=== PATIENT | female | born 1940 | race Asian ===

== ENCOUNTER 2018-09-23 14:14 | Emergency (ER) | payer MEDICARE, MEDICAID ==
[~2018-09-23] VITALS: Ht 152.4 cm; Wt 70.8 kg
[2018-09-23 14:30] VITALS: BP 171/62
--- NOTE | 2018-09-23 14:40 | NUR ---
PT REC'D ON MECH VENT ON CPAP ON NOTED SETTINGS GIVEN FROM TRANSPORT RT. PT SHOWS NO SIGNS OF RESP DISTRESS AND SOB. PT AWAKE AND ALERT. SX'D FOR MOD AMT OF PALE YELLOW SECRETIONS. TRACH PATENT AND SECURED. ALARMS SET AND AUDIBLE. VENT PLUGGED INTO RED OUTLET. AMBU BAG BEDSIDE. WILL CONTINUE TO MONITOR Addendum: 09/23/18 at 1524 by CASA VUONG RT Amended: Links added.
--- NOTE | 2018-09-23 14:51 | NUR ---
DR CURTIS AT BEDSIDE FOR G TUBE REINSERTION. 22F. AWAITING XRAY FOR PLACEMENT CONFIRMATION.
[2018-09-23] MEDS ORDERED: DIATR MEGLU/DIATRIZOATE SODIUM 120 ML BOTTLE (GASTROGRAPHIN) PO ONE (15:00)
--- NOTE | 2018-09-23 15:26 | NUR ---
[facility]. ETA 30 MIN. TRIP NUMBER IS [id number]
--- NOTE | 2018-09-23 16:06 | NUR ---
PT STABLE FOR TRANSFER EMS HERE Patient discharged to home in stable condition. Written and verbal after care instructions given. Patient verbalizes understanding of instruction.
[2018-09-23 16:09] VITALS: BP 169/72
== END 2018-09-23 16:10 ==
LOC: ER 14:21
DX: K94.23 Gastrostomy malfunction (principal); R13.10 Dysphagia, unspecified; R56.9 Unspecified convulsions; F03.90 Unspecified dementia, unspecified severity, without behavioral disturbance, psychotic disturbance, mood disturbance, and anxiety; G93.40 Encephalopathy, unspecified; I50.9 Heart failure, unspecified; K21.9 Gastro-esophageal reflux disease without esophagitis; E11.9 Type 2 diabetes mellitus without complications; F32.9 Major depressive disorder, single episode, unspecified; F41.9 Anxiety disorder, unspecified; Z99.11 Dependence on respirator [ventilator] status; Z87.09 Personal history of other diseases of the respiratory system; Z98.890 Other specified postprocedural states
CPT/HCPCS: 43762; 74018; 99284; A4606; Q9963

== ENCOUNTER 2018-12-07 14:22 | Inpatient (IN) | payer MEDICARE, MEDICAID ==
[~2018-12-07] VITALS: Ht 142.2 cm; Wt 55.8 kg
[2018-12-07] VITALS (7 sets, daily range): BP systolic 100–119; BP diastolic 43–88
--- NOTE | 2018-12-07 14:51 | NUR ---
PT BIBRA FROM SNF FOR LOW H&H; PT AOX0, NONVERBAL, OBTUNDED, PT TO BED 5, PT ON MONITOR, VSS, NAD NOTED. PENDING MD LOMAS
[2018-12-07 15:40] LABS: BASOPHILS % (AUTO) 0.2 % (0.0-2.0); EOSINOPHILS % (AUTO) 2.5 % (0.0-6.0); LYMPHOCYTES # (AUTO) 0.8 /CMM (0.8-4.8); LYMPHOCYTES % (AUTO) 7.9 % (20.0-44.0); MEAN CORPUSCULAR HGB CONC 33 g/dl (31.0-36.0); MEAN CORPUSCULAR VOLUME 89 fL (82-100); MONOCYTES # (AUTO) 0.5 /CMM (0.1-1.30); MONOCYTES % (AUTO) 5.1 % (2.0-12.0); NEUTROPHILS % (AUTO) 84.3 % (43.0-81.0); PLATELET COUNT (AUTO) 213 /CMM (150-450); RED BLOOD CELL COUNT(AUTO) 2.23 MIL/uL (4.0-5.2); WHITE BLOOD COUNT (AUTO) 9.5 K/uL (4.3-11.0)
[2018-12-07 15:42] LABS: HEMATOCRIT 20 % (33-45); HEMOGLOBIN 6.6 g/dL (11.5-14.8)
[2018-12-07] MEDS ORDERED: ACET-73 PO (15:48)
[2018-12-07] MEDS ORDERED: CRAN3875 GT (15:48)
[2018-12-07] MEDS ORDERED: NA P133E RC (15:48)
[2018-12-07] MEDS ORDERED: ASCO500T9 GT (15:48)
[2018-12-07] MEDS ORDERED: LOSA50TA39 GT (15:48)
[2018-12-07] MEDS ORDERED: INSU500V SQ (15:48)
[2018-12-07] MEDS ORDERED: ACET650T10 GT (15:48)
[2018-12-07] MEDS ORDERED: MULT-447 GT (15:48)
[2018-12-07] MEDS ORDERED: SIME80TA15 GT (15:48)
[2018-12-07] MEDS ORDERED: FERR325T23 GT (15:48)
[2018-12-07] MEDS ORDERED: INSU100V10 SQ (15:48)
[2018-12-07] MEDS ORDERED: HYDR-4075 GT (15:48)
[2018-12-07] MEDS ORDERED: BISA10SU8 RC (15:48)
[2018-12-07] MEDS ORDERED: ACET-73 GT (15:48)
[2018-12-07] MEDS ORDERED: CLON0.1T GT (15:48)
[2018-12-07] MEDS ORDERED: FAMO20TA8 GT (15:48)
[2018-12-07] MEDS ORDERED: SACC250C GT (15:48)
[2018-12-07] MEDS ORDERED: FAMO20TA8 PO (15:48)
[2018-12-07] MEDS ORDERED: DOCU-141 GT (15:48)
[2018-12-07] MEDS ORDERED: LEVE500T20 GT (15:48)
[2018-12-07] MEDS ORDERED: NUT.237L30 GT (15:48)
[2018-12-07] MEDS ORDERED: ALBU2.5V13 IH ×2 (15:48)
[2018-12-07] MEDS ORDERED: MAGN400O6 GT (15:48)
[2018-12-07 15:49] LABS: CALCIUM, SERUM 9.4 mg/dL (8.5-10.1); CARBON DIOXIDE 36 mmol/L (21-32); CHLORIDE 100 mmol/L (98-107); CREATININE 0.6 mg/dL (0.6-1.3); GLUCOSE 111 mg/dL (74-106); POTASSIUM 4.3 mmol/L (3.5-5.1); SODIUM SERUM 140 mmol/L (136-145); UREA NITROGEN, BLOOD 18 mg/dL (7-18)
[2018-12-07 15:55] LABS: ALANINE AMINOTRANSFERASE 24 U/L (12-78); ALBUMIN 2.1 g/dL (3.4-5.0); ALKALINE PHOSPHATASE 217 U/L (46-116); ASPARTATE AMINOTRANSFERASE 29 U/L (15-37); BILIRUBIN,DIRECT 0.1 mg/dL (0.0-0.2); BILIRUBIN,TOTAL 0.3 mg/dL (0.2-1.0); TOTAL PROTEIN, SERUM 7.5 g/dL (6.4-8.2)
[2018-12-07] MEDS ORDERED: IPRA0.2S9 IH ×2 (16:11)
[2018-12-07] MEDS ORDERED: FERR300L GT (16:11)
[2018-12-07] MEDS ORDERED: ACET650S26 GT (16:12)
--- NOTE | 2018-12-07 16:40 | NUR ---
RT NOTE: LATE ENTRY- PATIENT RECEIVED IN ER WITH PORTEX#7 TRACH AND PLACED ON ESPRIT VENT. SETTINGS PER MD ORDER. ALARMS SET AND AUDIBLE. SUCTIONED AND LAVAGED MODERATE AMOUNT OF THICK ENRIQUEZ SECRETIONS. VENT PLUGGED INTO RED OUTLET. AMBU BAG AT [facility].
--- NOTE | 2018-12-07 17:05 | NUR ---
KEYA BED 113-1
--- NOTE | 2018-12-07 18:00 | NUR ---
HOSE BUILDER ADMITTING NOTE RECEIVED REPORT FROM HERMINIO YOU, ER @4050. RECEIVED PT. @APPROX 1800. NO ACUTE DISTRESS OR SOB NOTED. PT. IS NONVERBAL, TRACH DEPENDANT. OPENS EYES TO NAME AND ABLE TO FOLLOW COMMANDS. TELE ATTACHED, SINUS TACHY 91. G-TUBE SITE CLEAN, DRY AND INTACT. SKIN ASSESSMENT DONE, PICTURES TAKEN. IV SITE R WRIST 20G SALINE LOCKED, CLEAN, DRY, INTACT. MRSA SWAB DONE. TRANSFUSION PENDING, BED LOCKED, LOW, SIDE RAILS UPX2, CALL LIGHT WITHIN REACH. ENDORSED TO BATTERY HAND
--- NOTE | 2018-12-07 18:20 | NUR ---
report given to gordon lawrence for nahomy; pt will be transported via acls protocol
[2018-12-07] MEDS ORDERED: ALBUTEROL FS 2.5 MG/0.5 ML VIAL.NEB IH PRN (19:30)
[2018-12-07] MEDS ORDERED: IPRATROPIUM NEB FS 0.5 MG/2.5 ML AMPUL.NEB IH PRN (19:30)
[2018-12-07] MEDS ORDERED: CLONIDINE HCL 0.1 MG TABLET GT PRN (19:30)
--- NOTE | 2018-12-07 20:00 | NUR ---
ASSISTANT ART DIRECTOR NOTES RECEIVED PT ON BED. ON [facility] VENT SETTING SATURATING WELL. IV ACCESS ON R WRIST G20 SALINE LOCK. ON TELE MONITOR SR 80. PT A/OX1. HEAD OF BED ELEVATED. SIDE RAILS UP. CALL LIGHT WITHIN REACH. BED ALARM ON. WILL CONTINUE TO MONITOR PT CLOSELY.
--- NOTE | 2018-12-07 20:23 | NUR ---
GRAIN PICKER NOTES CALLED [facility] FOR ADMITTING ORDERS, PER CHRISTO RESUME PREVIOUS GT FEEDING IN SNF, AND ADMIT TO TELE.
[2018-12-07] MEDS ORDERED: ONDANSETRON HCL/PF 4 MG/2 ML VIAL IVP PRN (21:00)
[2018-12-07] MEDS ORDERED: Z GUARD REMEDY 2 OZ OINT TP PRN (21:00)
[2018-12-07] MEDS: ACETAMINOPHEN 325 MG TABLET PO PRN (21:07)
--- NOTE | 2018-12-07 21:07 | NUR ---
ORCHID WORKER NOTES PT TEMPERATURE OF 100. GIVEN TYLENOL AND COOLING MEASURES.
[2018-12-07] MEDS: GLUCERNA 1.2 1,000 ML BOTTLE GT PRN (21:49)
--- NOTE | 2018-12-07 21:56 | NUR ---
RT NOTE PATIENT RECEIVED TRACHED ON MECHANICAL VENTILATION. PORTEX [address] AMBU BAG @ BEDSIDE. CUFF CHECKED VIA DRILLING MACHINE RUNNER. SX DONE, SMALL THICK WHITE YELLOW SECRETIONS NOTED. ALARMS ON AND AUDIBLE. VENT PLUGGED TO RED OUTLET. NO DISTRESS NOTED. PULSE OX CONNECTED. WILL MONITOR T/O SHIFT. Addendum: 12/07/18 at 2157 by MARCI WEBB RT Amended: Links added.
[2018-12-07] MEDS: LEVETIRACETAM SOL (5 ML) 100 MG/ML UDC GT SCH (22:08)
[2018-12-07] MEDS: INSULIN GLARGINE, 100 UNIT/ML CARTRIDGE SQ SCH (22:11)
[2018-12-07] MEDS: hydrALAZINE HCL 10 MG TABLET GT SCH (23:00)
[2018-12-07] MEDS: IV NS 0.9% 1,000 ML IV PRN (23:01)
--- NOTE | 2018-12-07 23:03 | NUR ---
MEDICAL AIDE NOTES CALLED SNF FOR VACCINATION RECORDS, UNABLE TO REACH SNF X4. WILL F/.U IN AM.
--- NOTE | 2018-12-07 23:14 | NUR ---
ADDICTION THERAPIST NOTES ON GOING BT, V/S STABLE. NO RESPIRATORY DISTRESS NOTED.
[2018-12-08] VITALS (11 sets, daily range): BP systolic 115–157; BP diastolic 48–78
--- NOTE | 2018-12-08 00:36 | NUR ---
WEED INSPECTOR NOTES BLOOD TRANSFUSION COMPLETED. NO ADVERSE REACTION NOTED.
[2018-12-08] MEDS: hydrALAZINE HCL 10 MG TABLET GT SCH ×4 (05:51→23:49)
[2018-12-08] MEDS: FAMOTIDINE (20 MG) 20 MG TABLET GT SCH (05:51)
[2018-12-08] MEDS: ACETAMINOPHEN 325 MG TABLET PO PRN ×2 (05:52→23:57)
--- NOTE | 2018-12-08 05:54 | NUR ---
ENTRY LEVEL ELECTRICAL ENGINEER NOTES TEMP OF 99.9. ICE BATH GIVEN, AND TYLENOL PRN. WILL MONITOR TEMP CLOSELY.
--- NOTE | 2018-12-08 07:15 | NUR ---
WATER OPERATOR NOTES NO ACUTE CHANGES NOTED DURING THE SHIFT. NO ACTIVE BLEEDING NOTED. NO RESPIRATORY DISTRESS NOTED. PROVIDED COMFORT AND SAFETY. WILL ENDORSE TO THE AM NURSE FOR CONTINUITY OF CARE.
[2018-12-08 07:33] LABS: BASOPHILS % (AUTO) 0.1 % (0.0-2.0); EOSINOPHILS % (AUTO) 1.6 % (0.0-6.0); HEMATOCRIT 22 % (33-45); HEMOGLOBIN 7.3 g/dL (11.5-14.8); LYMPHOCYTES # (AUTO) 0.7 /CMM (0.8-4.8); LYMPHOCYTES % (AUTO) 7.2 % (20.0-44.0); MEAN CORPUSCULAR HGB CONC 34 g/dl (31.0-36.0); MEAN CORPUSCULAR VOLUME 88 fL (82-100); MONOCYTES # (AUTO) 0.5 /CMM (0.1-1.30); MONOCYTES % (AUTO) 5.4 % (2.0-12.0); NEUTROPHILS # (AUTO) 7.8 /CMM (1.8-8.9); NEUTROPHILS % (AUTO) 85.7 % (43.0-81.0); PLATELET COUNT (AUTO) 203 /CMM (150-450); RED BLOOD CELL COUNT(AUTO) 2.49 MIL/uL (4.0-5.2); WHITE BLOOD COUNT (AUTO) 9.1 K/uL (4.3-11.0)
--- NOTE | 2018-12-08 07:39 | NUR ---
PIN PUSHER NOTES RECEIVED PT ON BED. [facility] PRESCRIBED, SATURATING WELL. R WRIST G20 SL INTACT AND PATENT. ON TELE MONITOR SR 80'S. PT A/OX1. G-TUBE FEEDING INFUSING GLUCERNA PRESCRIBED. NO SOB OR ACUTE DISTRESS NOTED. HOB ELEVATED. SAFETY MEASURES IN PLACE. BED IN LOW LOCKED POSITION, SIDE RAILS UP, CALL LIGHT WITHIN REACH, BED ALARM ON. WILL CONTINUE TO MONITOR.
[2018-12-08 07:54] LABS: ALANINE AMINOTRANSFERASE 25 U/L (12-78); ALBUMIN 1.9 g/dL (3.4-5.0); ALKALINE PHOSPHATASE 243 U/L (46-116); ASPARTATE AMINOTRANSFERASE 24 U/L (15-37); BILIRUBIN,TOTAL 0.3 mg/dL (0.2-1.0); CALCIUM, SERUM 8.9 mg/dL (8.5-10.1); CARBON DIOXIDE 30 mmol/L (21-32); CHLORIDE 101 mmol/L (98-107); CREATININE 0.6 mg/dL (0.6-1.3); GLUCOSE 150 mg/dL (74-106); MAGNESIUM 2.1 mg/dL (1.8-2.4); PHOSPHORUS 4.3 mg/dL (2.5-4.9); POTASSIUM 3.9 mmol/L (3.5-5.1); SODIUM SERUM 138 mmol/L (136-145); TOTAL PROTEIN, SERUM 6.9 g/dL (6.4-8.2); UREA NITROGEN, BLOOD 20 mg/dL (7-18)
[2018-12-08 08:03] LABS: CHOLESTEROL 73 mg/dL (<200); HDL CHOLESTEROL 23 mg/dL (40-60); LDL 43 mg/dL (0-99); THYROID STIMULATING HORMONE 2.362 uIU/mL (0.358-3.74); TRIGLYCERIDES 159 mg/dL (30-150)
[2018-12-08] MEDS: FERROUS SULFATE UDC 300 MG/5 ML UDC GT SCH (08:12)
[2018-12-08] MEDS: LEVETIRACETAM SOL (5 ML) 100 MG/ML UDC GT SCH ×2 (08:12→21:11)
[2018-12-08] MEDS: SIMETHICONE 80 MG TAB.CHEW GT SCH (08:12)
[2018-12-08] MEDS: ACIDOPHILUS/BULGARICUS 1 EACH TAB.CHEW PO SCH ×3 (08:12→16:58)
[2018-12-08] MEDS: LOSARTAN POTASSIUM 50 MG TABLET GT SCH (08:13)
[2018-12-08 08:29] LABS: IRON, SERUM 19 ug/dl (50-175); TOTAL IRON BINDING CAPACITY 127 ug/dl (250-450)
--- NOTE | 2018-12-08 09:21 | NUR ---
RT NOTE RECEIVED PT MECHANICALLY VENTILATED VIA PORTEX 7 CUFFED TRACHEOSTOMY TUBE. CUFF INFLATED. TRACH TUBE MIDLINE AND SECURE. VENTILATOR SETTINGS PRESCRIBED. ALARMS SET PER PROTOCOL AND AUDIBLE. VENT PLUGGED IN TO RED OUTLET. AMBU BAG AT BED SIDE. NO DISTRESS NOTED AT MOMENT. Addendum: 12/08/18 at 0922 by GUILLE GARCIA RT Amended: Links added.
--- NOTE | 2018-12-08 09:39 | NUR ---
WOUND CARE CONSULT PATIENT SEEN AND SKIN ASSESSMENT DONE. PATIENT PRESENTS WITH SACRAL EXCORIATIONS, AND BILATERAL HEEL BLANCHABLE REDNESS ALL POA. TREATMENT RECOMMENDATIONS MADE, PATIENT WITH MARCELLA AT 9. PATIENT ON ISOFLEX [facility] BED. RECOMMEND TURNING Q 2 HOURS AND BILATERAL HEEL FLOATING. RECOMMEND Z GUARD WITH MEPILEX FOR PROTECTION TO SACRAL REGION. ALL PRESSURE ULCER PREVENTION MEASURES ARE NOTED TO BE IN PLACE. WILL SEE PRN.
[2018-12-08] MEDS: IV NS 0.9% 1,000 ML IV PRN (13:55)
[2018-12-08] MEDS: BLOOD SUGAR DIAGNOSTIC 1 EACH STRIP IN SCH ×3 (18:17→23:48)
--- NOTE | 2018-12-08 19:47 | NUR ---
STITCHING MACHINE FEEDER OR OFFBEARER CLOSING NOTES PT ON BED ON [facility] VENT SETTING PRESCRIBED, SATURATING WELL. L WRIST G20 SL INTACT AND PATENT. ON TELE MONITOR SR 70'S. PT A/OX1. G-TUBE FEEDING INFUSING GLUCERNA PRESCRIBED 45ML/HR.. NO SOB OR ACUTE DISTRESS NOTED. HOB ELEVATED. SAFETY MEASURES IN PLACE. BED IN LOW LOCKED POSITION, SIDE RAILS UP, CALL LIGHT WITHIN REACH, BED ALARM ON. CARE ENDORSED TO REED WORKER RN..
--- NOTE | 2018-12-08 20:20 | NUR ---
PT RCVD TRACH'D ON MECHANICAL VENT WITH CHARTED SETTINGS. SX DONE. PT TRACH IS PATENT AND SECURE. VENT PLUGGED INTO RED OUTLET. ALARMS ARE ON AND AUDIBLE. AMBU BAG AT BEDSIDE. WILL CONTINUE TO MONITOR. Addendum: 12/08/18 at 2020 by YOLIE ESPANA RT Amended: Links added.
--- NOTE | 2018-12-08 20:46 | NUR ---
TELE1/RN ON INITIAL SHIFT ROUND AT 1930, PATIENT WAS AWAKE, PASSIVE AFFECT, NON VERBAL, TRACH WITH VENT, COMFORTABLE, NO SIGNS OF PAIN, NO DISTRESS NOTED, HOB ELEVATED, GT FEEDING, NO RESIDUAL NOTED, WILL MONITOR.
[2018-12-08] MEDS: INSULIN GLARGINE, 100 UNIT/ML CARTRIDGE SQ SCH (22:38)
--- NOTE | 2018-12-08 23:43 | NUR ---
TELE/RN TEMP 101.2, CALLED [facility] FOR ORDERS, LEFT MESSAGE.
[2018-12-08] MEDS: GLUCERNA 1.2 1,000 ML BOTTLE GT PRN (23:49)
--- NOTE | 2018-12-08 23:54 | NUR ---
TELEOren/HERMINIO SRIVASTAVA CALLED BACK WITH ORDERS RECEIVED AND CARRIED OUT, Addendum: 12/08/18 at 2358 by CULLEN SUAZO RN DR. BEVERLY ALSO MADE ABOUT THE CXR RESULT DONE THIS MORNING.
[2018-12-09] VITALS: BP 133/63
--- NOTE | 2018-12-09 00:45 | NUR ---
TELE1/RN TYLENOL WAS GIVEN ORDERED FOR THE TEMP 101.2 AND COOLING MEASURES WAS STARTED, WILL MONITOR.
[2018-12-09] MEDS ORDERED: MEROPENEM 1 G VIAL IV ONE (00:48)
[2018-12-09] MEDS ORDERED: MEROPENEM 1 G in IV NS 0.9% 100 ML IV SCH ×2 (01:00→12:00)
[2018-12-09 04:00] VITALS: BP 98/62
[2018-12-09] MEDS: IV NS 0.9% 1,000 ML IV PRN (04:03)
--- NOTE | 2018-12-09 04:26 | NUR ---
TELE1/RN TEMP 98.6, INTERVENTION EFFECTIVE. PATIENT IS SLEEPING, AROUSABLE, APPEAR COMFORTABLE, NO SIGNS OF DISTRESS NOTED, HOB ELEVATED. WILL CONTINUE TO MONITOR.
[2018-12-09] MEDS: BLOOD SUGAR DIAGNOSTIC 1 EACH STRIP IN SCH ×3 (05:24→17:20)
[2018-12-09] MEDS: hydrALAZINE HCL 10 MG TABLET GT SCH ×3 (05:25→17:20)
[2018-12-09] MEDS: FAMOTIDINE (20 MG) 20 MG TABLET GT SCH (06:20)
--- NOTE | 2018-12-09 06:31 | NUR ---
TELE1/RN PATIENT IS AWAKE, COMFORTABLE, NO DISTRESS NOTED, MORNING CARE DONE, TOTAL LINEN CHANGE DONE, TRACH CARE DONE, TOLERATED, REPOSITIONED TO COMFORT, ALL NEEDS ATTENDED AT THIS TIME, WILL CONTINUE TO MONITOR.
[2018-12-09 06:55] LABS: BASOPHILS % (AUTO) 0.2 % (0.0-2.0); EOSINOPHILS % (AUTO) 3.4 % (0.0-6.0); HEMATOCRIT 24 % (33-45); HEMOGLOBIN 7.6 g/dL (11.5-14.8); LYMPHOCYTES # (AUTO) 0.8 /CMM (0.8-4.8); LYMPHOCYTES % (AUTO) 10.2 % (20.0-44.0); MEAN CORPUSCULAR HGB CONC 32 g/dl (31.0-36.0); MEAN CORPUSCULAR VOLUME 89 fL (82-100); MONOCYTES # (AUTO) 0.6 /CMM (0.1-1.30); MONOCYTES % (AUTO) 7.7 % (2.0-12.0); NEUTROPHILS # (AUTO) 6.4 /CMM (1.8-8.9); NEUTROPHILS % (AUTO) 78.5 % (43.0-81.0); PLATELET COUNT (AUTO) 203 /CMM (150-450); RED BLOOD CELL COUNT(AUTO) 2.65 MIL/uL (4.0-5.2); WHITE BLOOD COUNT (AUTO) 8.1 K/uL (4.3-11.0)
[2018-12-09 07:31] LABS: CALCIUM, SERUM 8.5 mg/dL (8.5-10.1); CARBON DIOXIDE 27 mmol/L (21-32); CHLORIDE 104 mmol/L (98-107); CREATININE 0.6 mg/dL (0.6-1.3); GLUCOSE 135 mg/dL (74-106); POTASSIUM 3.8 mmol/L (3.5-5.1); SODIUM SERUM 140 mmol/L (136-145); UREA NITROGEN, BLOOD 16 mg/dL (7-18)
--- NOTE | 2018-12-09 07:42 | NUR ---
COPY ROOM TECHNICIAN NOTES RECEIVED PT ON BED. [facility] PRESCRIBED, SATURATING WELL. R WRIST G20 SL INTACT AND PATENT. ON TELE MONITOR SR 80'S. PT A/OX1. G-TUBE FEEDING INFUSING GLUCERNA PRESCRIBED. NO SOB OR ACUTE DISTRESS NOTED. HOB ELEVATED. SAFETY MEASURES IN PLACE. BED IN LOW LOCKED POSITION, SIDE RAILS UP, CALL LIGHT WITHIN REACH, BED ALARM ON. WILL CONTINUE TO MONITOR.
[2018-12-09 08:00] VITALS: BP 122/64
[2018-12-09] MEDS: LEVETIRACETAM SOL (5 ML) 100 MG/ML UDC GT SCH (08:32)
[2018-12-09] MEDS: FERROUS SULFATE UDC 300 MG/5 ML UDC GT SCH (08:32)
[2018-12-09] MEDS: LOSARTAN POTASSIUM 50 MG TABLET GT SCH (08:33)
[2018-12-09] MEDS: ACIDOPHILUS/BULGARICUS 1 EACH TAB.CHEW PO SCH ×3 (08:33→17:19)
[2018-12-09] MEDS: SIMETHICONE 80 MG TAB.CHEW GT SCH (08:36)
[2018-12-09 12:00] VITALS: BP 138/66
[2018-12-09] MEDS ORDERED: FERR325T23 PO (14:24)
[2018-12-09 16:00] VITALS: BP 116/60
[2018-12-09 17:20] VITALS: BP 116/60
--- NOTE | 2018-12-09 18:48 | NUR ---
PATIENT DISCHRGED VIA APPRENTICE PHOTOGRAPHER TRANSPORT W/ RESPIRATORY CREW. PATEINT V/S WNL, NO SOB OR ACUTE DISTRESS NOTED. TELE MONIOR REMOVED. FAMILY NOTIFIED. PATEINT CLEAN AND DRY, WOUND CARE COMPLETE. REPORT GIVEN TO RN AT SNF. ALL MEDICATIONS SCHEDULED GIVEN. D/C COMPLETED W/O INCIDENT.
== END 2018-12-09 18:20 | DRG 811 ==
LOC: ER 14:22 → TELE1 17:18
PROVIDERS: ADMIT Nurse Practitioner Acute Care; ATTEND Nurse Practitioner Acute Care
PROC: 5A1945Z Respiratory Ventilation, 24-96 Consecutive Hours (ICD-10-PCS; principal; 2018-12-07)
PROC: 30233N1 Transfusion of Nonautologous Red Blood Cells into Peripheral Vein, Percutaneous Approach (ICD-10-PCS; 2018-12-07)
PROC: 30233N1 Transfusion of Nonautologous Red Blood Cells into Peripheral Vein, Percutaneous Approach (ICD-10-PCS; 2018-12-07)
DX: D50.9 Iron deficiency anemia, unspecified (principal); R53.2 Functional quadriplegia; Z99.11 Dependence on respirator [ventilator] status; R40.3 Persistent vegetative state; G93.49 Other encephalopathy; J96.11 Chronic respiratory failure with hypoxia; J90 Pleural effusion, not elsewhere classified; I50.32 Chronic diastolic (congestive) heart failure; D63.8 Anemia in other chronic diseases classified elsewhere; E78.5 Hyperlipidemia, unspecified; I11.0 Hypertensive heart disease with heart failure; G40.909 Epilepsy, unspecified, not intractable, without status epilepticus; Z93.0 Tracheostomy status; Z93.1 Gastrostomy status; R13.10 Dysphagia, unspecified; F03.90 Unspecified dementia, unspecified severity, without behavioral disturbance, psychotic disturbance, mood disturbance, and anxiety; F41.9 Anxiety disorder, unspecified; K21.9 Gastro-esophageal reflux disease without esophagitis; F32.9 Major depressive disorder, single episode, unspecified; Z79.4 Long term (current) use of insulin; Z79.899 Other long term (current) drug therapy; Z79.51 Long term (current) use of inhaled steroids; F09 Unspecified mental disorder due to known physiological condition
CPT/HCPCS: 31720; 36415; 71045-TC; 80048-TC; 80053-TC; 80061-TC; 80076-TC; 82962-TC; 83540-TC; 83735-TC; 84100-TC; 84443-TC; 85025-TC; 85045-TC; 85730-TC; 86850-TC; 86921-TC; 87040-TC; 87081-TC; 94002-TC; 94003-TC; 94760-TC; 94762-TC; 94799-TC; A4623; A6402; A6403; G0378; J1815; J1953; J2185; J7030; P9016-BL

== ENCOUNTER 2018-12-23 11:15 | Inpatient (IN) | payer MEDICARE, MEDICAID ==
[~2018-12-23] VITALS: Ht 157.5 cm; Wt 52.2 kg
[~2018-12-23 11:15] MED LIST: ACET-73 GT; ACET650S26 GT; ACET650T10 GT; ALBU2.5V13 IH; ASCO500T9 GT; BISA10SU8 RC; CLON0.1T GT; CRAN3875 GT; DOCU-141 GT; FAMO20TA8 GT; FERR300L GT; FERR325T23 PO; HYDR-4075 GT; INSU100V10 SQ; IPRA0.2S9 IH; LEVE500T20 GT; LOSA50TA39 GT; MAGN400O6 GT; MULT-447 GT; NA P133E RC; NUT.237L30 GT; SACC250C GT; SIME80TA15 GT
--- NOTE | 2018-12-23 11:38 | NUR ---
1125: Patient LIZETH from [facility] for [facility]. With trache to vent, no resp disterss at this time. With g24 from SNF. Nonverbal, unable to follow commands at this time.
--- NOTE | 2018-12-23 11:49 | NUR ---
AND C/C BIBA Unit 170 Georgian Professional from [facility] HC GI BLEEDING X 2 DAYS
[2018-12-23 11:55] VITALS: BP 106/76
[2018-12-23] MEDS ORDERED: CHLO473M5 MM (11:55)
[2018-12-23] MEDS ORDERED: VITA56.7 TP (11:55)
[2018-12-23] MEDS ORDERED: INSU100V3 SQ (11:55)
[2018-12-23] MEDS ORDERED: FLUO15CR TP (11:55)
[2018-12-23] MEDS ORDERED: IV NS 0.9% 1,000 ML BAG IV ONE (12:00)
[2018-12-23] MEDS ORDERED: PANTOPRAZOLE 80 MG in IV NS 0.9% 100 ML IV ONE (12:00)
--- NOTE | 2018-12-23 12:00 | NUR ---
RT NOTE PT REC'D TRACHED VIA PORTEX SZ 7 ON [facility] VENT ON AC MODE. NO RESP DISTRESS OR SOB NOTED. TRACH IS PATENT AND SECURED. SX'D FOR MOD AMT OF BLOOD TINGED SECRETIONS. ALARMS ARE SET AND AUDIBLE. VENT PLUGGED INTO RED OUTLET. AMBU BAG BEDSIDE. WILL CONTINUE TO MONITOR. Addendum: 12/23/18 at 1204 by CASA VUONG RT Amended: Links added.
[2018-12-23] MEDS ORDERED: NEXIUM 40 MG VIAL IV ONE (12:30)
[2018-12-23 12:36] LABS: BASOPHILS % (AUTO) 0.3 % (0.0-2.0); EOSINOPHILS % (AUTO) 3.1 % (0.0-6.0); HEMATOCRIT 26 % (33-45); HEMOGLOBIN 8.7 g/dL (11.5-14.8); LYMPHOCYTES # (AUTO) 0.8 /CMM (0.8-4.8); LYMPHOCYTES % (AUTO) 7.7 % (20.0-44.0); MEAN CORPUSCULAR HGB CONC 33 g/dl (31.0-36.0); MEAN CORPUSCULAR VOLUME 85 fL (82-100); MONOCYTES # (AUTO) 0.5 /CMM (0.1-1.30); MONOCYTES % (AUTO) 4.3 % (2.0-12.0); NEUTROPHILS # (AUTO) 9.2 /CMM (1.8-8.9); NEUTROPHILS % (AUTO) 84.6 % (43.0-81.0); PLATELET COUNT (AUTO) 234 /CMM (150-450); RED BLOOD CELL COUNT(AUTO) 3.08 MIL/uL (4.0-5.2); WHITE BLOOD COUNT (AUTO) 10.9 K/uL (4.3-11.0)
[2018-12-23 12:52] LABS: ALANINE AMINOTRANSFERASE 20 U/L (12-78); ALBUMIN 2.3 g/dL (3.4-5.0); ALKALINE PHOSPHATASE 155 U/L (46-116); ASPARTATE AMINOTRANSFERASE 19 U/L (15-37); BILIRUBIN,DIRECT 0.3 mg/dL (0.0-0.2); BILIRUBIN,TOTAL 0.6 mg/dL (0.2-1.0); CALCIUM, SERUM 9.6 mg/dL (8.5-10.1); CARBON DIOXIDE 35 mmol/L (21-32); CHLORIDE 97 mmol/L (98-107); CREATININE 0.7 mg/dL (0.6-1.3); GLUCOSE 118 mg/dL (74-106); LIPASE 98 U/L (73-393); POTASSIUM 4.4 mmol/L (3.5-5.1); SODIUM SERUM 135 mmol/L (136-145); TOTAL PROTEIN, SERUM 7.6 g/dL (6.4-8.2); UREA NITROGEN, BLOOD 23 mg/dL (7-18)
[2018-12-23 13:28] VITALS: BP 117/59
--- NOTE | 2018-12-23 14:26 | NUR ---
PT BATHED AND LINEN CHAEGED ALONG WITH DIAPER FOR MODERATE AMOUNT GREEN STOOL
--- NOTE | 2018-12-23 14:29 | NUR ---
Tele- 107. Prashant aware
--- NOTE | 2018-12-23 14:31 | NUR ---
PT ADMITTED TO ROOM 107 UNDERAIvonne TOVAR FOR GI BLEED SPOKE WITH HERMINIO WALTER
[2018-12-23 16:00] VITALS: BP 148/58
[2018-12-23] MEDS ORDERED: IV NS 0.9% 1,000 ML IV PRN (16:21)
[2018-12-23] MEDS ORDERED: DEXTROSE 50%-WATER 50 ML DISP.SYRIN IV PRN (16:30)
[2018-12-23] MEDS ORDERED: Z GUARD REMEDY 2 OZ OINT TP PRN (16:30)
[2018-12-23] MEDS ORDERED: ALBUTEROL FS 2.5 MG/0.5 ML VIAL.NEB IH PRN (16:30)
[2018-12-23] MEDS ORDERED: IPRATROPIUM NEB FS 0.5 MG/2.5 ML AMPUL.NEB IH PRN (16:30)
[2018-12-23] MEDS ORDERED: MORPHINE SULFATE INJ 2 MG/ML DISP.SYRIN IV PRN (16:30)
[2018-12-23] MEDS ORDERED: ONDANSETRON HCL/PF 4 MG/2 ML VIAL IVP PRN (16:30)
[2018-12-23] MEDS: SUCRALFATE 1 G/10 ML UDC GT SCH ×2 (17:22→22:00)
[2018-12-23] MEDS: BLOOD SUGAR DIAGNOSTIC 1 EACH STRIP IN SCH ×2 (17:31→23:30)
[2018-12-23] MEDS: IV D5/ 0.9% NACL 1,000 ML IV PRN (17:31)
--- NOTE | 2018-12-23 18:40 | NUR ---
RN NOTE; PATIENT RECEIVED/ADMITTED FROM ER ALERT , OPEN EYES TO VERBAL & TACTILE STIMULI , NON VERBAL. ON VENT-TRAC, SETTINGS TOLERATING WELL. ON TELE MONITOR SINUS TACHY. SKIN ASSESSED & PICTURES TAKEN. NO BM NOTED ON FLOOR. ASPIRATION PRECAUTIONS OBSERVED. PATIENT SEEN & ASSESSED BY LAURA OSHEA, PLAN FOR EGD. LAURA OSHEA WILL TALK TO BROTHER THAN WILL GET CONSENT. SAFETY MEASURES OBSERVED. NPO STATUS. CONTINUE TO MONITOR.
[2018-12-23] MEDS: IPRATROPIUM NEB FS 0.5 MG/2.5 ML AMPUL.NEB IH SCH (19:48)
[2018-12-23 20:00] VITALS: BP 118/53
--- NOTE | 2018-12-23 20:21 | NUR ---
RN PM OPENING NOTES: PT IN BED COMFORTABLY. ON VENT-TRAC, SETTINGS TOLERATING WELL. ON TELE MONITOR SINUS TACHY. .ASPIRATION PRECAUTIONS OBSERVED. PATIENT SEEN & ASSESSED BY LAURA OSHEA, PLAN FOR EGD. LAURA OSHEA WILL TALK TO BROTHER THAN WILL GET CONSENT. SAFETY MEASURES OBSERVED. NPO STATUS. CONTINUE TO MONITER AND GIVE ALL MEDICATIONS PER PROTOCOL.
[2018-12-23] MEDS: LEVETIRACETAM (500MG) 250 MG in IV NS 0.9% 100 ML IV SCH (21:36)
[2018-12-23] MEDS: CHLORHEXIDINE GLUCONATE 15 ML UDC MM SCH (21:38)
[2018-12-23] MEDS: INSULIN GLARGINE, 100 UNIT/ML CARTRIDGE SQ SCH (22:00)
[2018-12-23] MEDS ORDERED: MEROPENEM 1 G in IV NS 0.9% 100 ML IV ONE (22:00)
[2018-12-23] MEDS ORDERED: VANCOMYCIN 1 GM in IV NS 0.9% 250 ML IV ONE (22:30)
[2018-12-23] MEDS ORDERED: VANCOMYCIN 1 GM VIAL ONE (23:03)
[2018-12-23] MEDS ORDERED: MEROPENEM 1 G VIAL IV ONE (23:03)
[2018-12-23] MEDS ORDERED: INSULIN GLARGINE, 100 UNIT/ML CARTRIDGE SQ ONE (23:40)
[2018-12-24] VITALS: BP 128/61
[2018-12-24] MEDS: ALBUTEROL FS 2.5 MG/0.5 ML VIAL.NEB IH SCH ×4 (00:30→19:58)
[2018-12-24 01:03] LABS: APPEARANCE,URINE CLEAR (CLEAR); BILIRUBIN,URINE NEGATIVE (NEGATIVE); BLOOD, URINE 1+ Ery/uL (NEGATIVE); COLOR,URINE YELLOW (YELLOW); KETONES,URINE NEGATIVE (NEGATIVE); LEUKOCYTE ESTERASE ,URINE NEGATIVE (NEGATIVE); NITRITE, URINE NEGATIVE (NEGATIVE); PROTEIN,URINE NEGATIVE (NEGATIVE); UGLUCOSE NEGATIVE (NEGATIVE); UROBILINOGEN,URINE 0.2 EU/dL (0.2)
[2018-12-24 01:29] LABS: BACTERIA,URINE None seen /HPF (None Seen); RBC,URINE 0-2 /HPF (0-2); SQUAMOUS EPITHELIAL CELL,UR Few /HPF (None Seen); WBC,URINE 0-2 /HPF (0-3)
[2018-12-24] MEDS: IPRATROPIUM NEB FS 0.5 MG/2.5 ML AMPUL.NEB IH SCH ×4 (01:31→19:58)
[2018-12-24] MEDS: ACETAMINOPHEN 650 MG/SUPP.RECT RC PRN (03:58)
[2018-12-24 04:00] VITALS: BP 127/66
[2018-12-24] MEDS: IV D5/ 0.9% NACL 1,000 ML IV PRN ×2 (05:30→21:52)
[2018-12-24] MEDS: BLOOD SUGAR DIAGNOSTIC 1 EACH STRIP IN SCH ×4 (05:31→22:48)
--- NOTE | 2018-12-24 05:44 | NUR ---
RN GLUCOSE LEVEL 141, NO INSULIN COVERAGE ADMINISTERED, PATIENT NPO.
--- NOTE | 2018-12-24 07:00 | NUR ---
RN NOTES RECEIVED PATIENT IN BED, AWAKE, ALERT X1, NON-VERBAL. TRACH TO VENT, TOLERATING SETTINGS WELL. NO SOB NOTED AT THIS TIME. PATIENT APPEARS COMFORTABLE, NO INDICATION OF PAIN AT THIS TIME. ON TELE MONITOR: SINUS RHYTHM WITH HR 100. IV ACCESS NOTED ON R HAND G 20 THE LFA G#[address] AND INTACT, PATENT ON FLUSHING, WITH ONGOING IVF OF D51/2 NS RUNNING AT 75 CC/HR. PATIENT ON NPO STATUS. HOB KEPT ELEVATED. SAFETY MEASURES OBSERVED AND MAINTAINED. BED LOW AND LOCKED POSITIONED. SRX2, CALL LIGHT WITHIN EASY REACH, WILL CONTINUE TO MONITOR AND ANTICIPATE NEEDS
[2018-12-24 07:04] LABS: BASOPHILS % (AUTO) 0.2 % (0.0-2.0); EOSINOPHILS % (AUTO) 2.2 % (0.0-6.0); HEMATOCRIT 22 % (33-45); HEMOGLOBIN 7.1 g/dL (11.5-14.8); LYMPHOCYTES # (AUTO) 0.7 /CMM (0.8-4.8); LYMPHOCYTES % (AUTO) 9.8 % (20.0-44.0); MEAN CORPUSCULAR HGB CONC 32 g/dl (31.0-36.0); MEAN CORPUSCULAR VOLUME 87 fL (82-100); MONOCYTES # (AUTO) 0.5 /CMM (0.1-1.30); MONOCYTES % (AUTO) 7.6 % (2.0-12.0); NEUTROPHILS # (AUTO) 5.7 /CMM (1.8-8.9); NEUTROPHILS % (AUTO) 80.2 % (43.0-81.0); PLATELET COUNT (AUTO) 187 /CMM (150-450); RED BLOOD CELL COUNT(AUTO) 2.53 MIL/uL (4.0-5.2); WHITE BLOOD COUNT (AUTO) 7.1 K/uL (4.3-11.0)
[2018-12-24 07:23] LABS: ALANINE AMINOTRANSFERASE 14 U/L (12-78); ALBUMIN 1.9 g/dL (3.4-5.0); ALKALINE PHOSPHATASE 128 U/L (46-116); ASPARTATE AMINOTRANSFERASE 14 U/L (15-37); BILIRUBIN,TOTAL 0.4 mg/dL (0.2-1.0); CALCIUM, SERUM 8.4 mg/dL (8.5-10.1); CARBON DIOXIDE 32 mmol/L (21-32); CHLORIDE 103 mmol/L (98-107); CREATININE 0.6 mg/dL (0.6-1.3); GLUCOSE 139 mg/dL (74-106); PHOSPHORUS 2.7 mg/dL (2.5-4.9); POTASSIUM 3.8 mmol/L (3.5-5.1); SODIUM SERUM 138 mmol/L (136-145); TOTAL PROTEIN, SERUM 6.6 g/dL (6.4-8.2); UREA NITROGEN, BLOOD 14 mg/dL (7-18)
[2018-12-24] MEDS: SUCRALFATE 1 G/10 ML UDC GT SCH ×4 (07:30→21:34)
[2018-12-24 07:32] LABS: CHOLESTEROL 88 mg/dL (<200); HDL CHOLESTEROL 25 mg/dL (40-60); LDL 47 mg/dL (0-99); THYROID STIMULATING HORMONE 2.513 uIU/mL (0.358-3.74); TRIGLYCERIDES 142 mg/dL (30-150)
[2018-12-24 07:48] LABS: IRON, SERUM 14 ug/dl (50-175); TOTAL IRON BINDING CAPACITY 145 ug/dl (250-450)
[2018-12-24 08:00] VITALS: BP 126/80
[2018-12-24] MEDS ORDERED: PANTOPRAZOLE 40 MG VIAL IV SCH (09:00)
[2018-12-24] MEDS ORDERED: NEXIUM 40 MG VIAL IV SCH (09:00)
[2018-12-24] MEDS: MEROPENEM 1 G in IV NS 0.9% 100 ML IV SCH ×2 (09:18→21:33)
[2018-12-24] MEDS: VITAMINS A AND D 56.7 GM TUBE TP SCH (09:18)
[2018-12-24] MEDS: LEVETIRACETAM (500MG) 250 MG in IV NS 0.9% 100 ML IV SCH ×2 (09:18→21:34)
[2018-12-24] MEDS: CHLORHEXIDINE GLUCONATE 15 ML UDC MM SCH ×2 (09:19→21:34)
[2018-12-24] MEDS: NEXIUM 40 MG VIAL IV SCH ×2 (09:19→17:15)
--- NOTE | 2018-12-24 11:40 | NUR ---
RN NOTES SEEN AND EXAMINED BY JAYCEE ROMAN, LATER UPDATED ON THE CURRENT STATUS.
[2018-12-24 12:00] VITALS: BP 130/76
--- NOTE | 2018-12-24 12:00 | NUR ---
RN NOTES SEEN AND EXAMINED BY DR ORTEGA, WITH ORDERS TO START GT FEEDING. PER MD, MONITOR PATIENT'S LAB VALUES AND THAT PATIENT DOES NOT NEED EGD AT THIS TIME. BROTHER AT BEDSIDE AND HAS VERBALIZED UNDERSTANDING
[2018-12-24] MEDS: GLUCERNA 1.2 1,000 ML BOTTLE NG PRN (13:17)
[2018-12-24] MEDS ORDERED: FEE PK DOSING 1 MIN EA MC ONE (14:07)
[2018-12-24 16:00] VITALS: BP 128/80
[2018-12-24] MEDS: VANCOMYCIN 1 GM in IV D5W 250 ML IV SCH (17:18)
[2018-12-24] MEDS: INSULIN REGULAR, HUMAN 100 UNIT/ML 3 ML VIAL SQ PRN (17:29)
--- NOTE | 2018-12-24 19:04 | NUR ---
RN NOTES ENDORSED FOR CONTINUITY OF CARE. NO ACUTE CHANGES WITHIN THE SHIFT. NOT ON ANY FORM OF DISTRESS. ALL NURSING NEEDS ATTENDED AND MET. SAFETY MEASURES KEPT IN PLACE AT ALL TIMES. CALL LIGHT WITHIN REACH.
--- NOTE | 2018-12-24 19:59 | NUR ---
PT RCVD TRACHED VIA PORTEX 7 [facility] WITH NOTED SETTINGS. PT IS AWAKE ,ALERT AND NON VERBAL. ONLINE USER EXPERIENCE STRATEGIST CUFF PRESSURE NOTED. TRACH PATENT AND SECURED. BREATHING TX GIVEN PER MD'S ORDER, NO ADVERSE REACTION NOTED. NO RESP DISTRESS OR SOB NOTED AT THIS TIME . SX SMALL AMT OF PALE YELLOW SECRETIONS. ALARMS ARE SET AND AUDIBLE. VENT PLUGGED INTO RED OUTLET. AMBU BAG BEDSIDE. WILL CONTINUE TO MONITOR.
[2018-12-24 20:00] VITALS: BP 132/58
[2018-12-24] MEDS: INSULIN GLARGINE, 100 UNIT/ML CARTRIDGE SQ SCH (22:48)
[2018-12-25] VITALS: BP 156/61
[2018-12-25] MEDS: ALBUTEROL FS 2.5 MG/0.5 ML VIAL.NEB IH SCH ×4 (01:28→19:37)
[2018-12-25] MEDS: IPRATROPIUM NEB FS 0.5 MG/2.5 ML AMPUL.NEB IH SCH ×4 (01:28→19:23)
[2018-12-25 04:00] VITALS: BP 157/76
[2018-12-25] MEDS: BLOOD SUGAR DIAGNOSTIC 1 EACH STRIP IN SCH ×4 (05:24→23:04)
[2018-12-25] MEDS: INSULIN REGULAR, HUMAN 100 UNIT/ML 3 ML VIAL SQ PRN ×3 (06:00→23:03)
[2018-12-25 06:35] LABS: BASOPHILS % (AUTO) 0.4 % (0.0-2.0); EOSINOPHILS % (AUTO) 4.8 % (0.0-6.0); HEMATOCRIT 24 % (33-45); HEMOGLOBIN 7.8 g/dL (11.5-14.8); LYMPHOCYTES # (AUTO) 0.7 /CMM (0.8-4.8); LYMPHOCYTES % (AUTO) 10.2 % (20.0-44.0); MEAN CORPUSCULAR HGB CONC 33 g/dl (31.0-36.0); MEAN CORPUSCULAR VOLUME 87 fL (82-100); MONOCYTES # (AUTO) 0.4 /CMM (0.1-1.30); MONOCYTES % (AUTO) 5.9 % (2.0-12.0); NEUTROPHILS # (AUTO) 5.1 /CMM (1.8-8.9); NEUTROPHILS % (AUTO) 78.7 % (43.0-81.0); PLATELET COUNT (AUTO) 202 /CMM (150-450); RED BLOOD CELL COUNT(AUTO) 2.73 MIL/uL (4.0-5.2); WHITE BLOOD COUNT (AUTO) 6.4 K/uL (4.3-11.0)
[2018-12-25 07:04] LABS: CALCIUM, SERUM 7.7 mg/dL (8.5-10.1); CARBON DIOXIDE 30 mmol/L (21-32); CHLORIDE 105 mmol/L (98-107); CREATININE 0.6 mg/dL (0.6-1.3); GLUCOSE 168 mg/dL (74-106); MAGNESIUM 1.8 mg/dL (1.8-2.4); PHOSPHORUS 2.6 mg/dL (2.5-4.9); POTASSIUM 3.5 mmol/L (3.5-5.1); SODIUM SERUM 141 mmol/L (136-145); UREA NITROGEN, BLOOD 9 mg/dL (7-18)
[2018-12-25 08:00] VITALS: BP 151/67
[2018-12-25] MEDS: MEROPENEM 1 G in IV NS 0.9% 100 ML IV SCH ×2 (08:01→21:28)
[2018-12-25] MEDS: SUCRALFATE 1 G/10 ML UDC GT SCH ×4 (08:01→21:28)
[2018-12-25] MEDS: CHLORHEXIDINE GLUCONATE 15 ML UDC MM SCH ×2 (08:04→20:07)
[2018-12-25] MEDS: VITAMINS A AND D 56.7 GM TUBE TP SCH (08:04)
[2018-12-25] MEDS: LEVETIRACETAM (500MG) 250 MG in IV NS 0.9% 100 ML IV SCH ×2 (08:04→20:08)
[2018-12-25] MEDS: NEXIUM 40 MG VIAL IV SCH ×2 (08:04→17:51)
[2018-12-25] MEDS ORDERED: LEVETIRACETAM SOL (5 ML) 100 MG/ML UDC GT ONE ×2 (11:30)
[2018-12-25 12:00] VITALS: BP 194/85
[2018-12-25] MEDS: VANCOMYCIN 1 GM in IV D5W 250 ML IV SCH (12:36)
[2018-12-25] MEDS: hydrALAZINE HCL IV 20 MG VIAL IV PRN ×2 (12:43→20:07)
[2018-12-25 16:00] VITALS: BP_SYST 145; BP_SYST 150; BP_DIAS 79; BP_DIAS 80
--- NOTE | 2018-12-25 19:15 | NUR ---
TELE/RN INITIAL NOTES RECEIVED PT IN BED, NON VERBAL, OPENS EYES. ST HR 105. IN NO SIGNS OF PAIN. WITH INTACT TRACH ON VENT, TOLERATING CURRENT VENT SETTINGS. NO SOB NOTED. HOB ELEVATED. GTUBE INTACT AND IN PLACED, WITH ONGOING GTF OF GLUCERNA AT 40 ML/HR, TOLERATING WELL. RATE ADJUSTED TO 45 ML/HR ORDERED. DORI MIDLINE AND LFA G22 HEPLOCK PATENT, C/D/I. IVF D5NS AT 75 ML/HR RESTARTED. SAFETY MEASURES, ASPIRATION AND SEIZURE PRECAUTION IN PLACED. CALL LIGHT WITHIN EASY REACH. WILL CONT TO MONITOR
[2018-12-25 20:00] VITALS: BP 164/73
--- NOTE | 2018-12-25 20:23 | NUR ---
RN NOTES CALLED JAMIN ARANA (BROTHER) [phone] TO OBTAIN CONSENT FOR THORACENTESIS, NO ANSWER. LEFT VOICEMAIL, AWAITING TO CALL BACK/ WILL TRY AGAIN LATER
--- NOTE | 2018-12-25 20:34 | NUR ---
RN NOTES RECEIVED CALL BACK FROM JAMIN ARANA (BROTHER), CONSENT WAS OBTAINED FOR US GUIDED THORACENTESIS, CONSENT VERIFIED BY HERMINIO URRUTIA
--- NOTE | 2018-12-25 21:15 | NUR ---
RN NOTES RECHECKED BP 148/73
[2018-12-25] MEDS: IV D5/ 0.9% NACL 1,000 ML IV PRN (22:29)
[2018-12-25] MEDS: GLUCERNA 1.2 1,000 ML BOTTLE NG PRN (22:56)
[2018-12-25] MEDS: INSULIN GLARGINE, 100 UNIT/ML CARTRIDGE SQ SCH (23:02)
--- NOTE | 2018-12-25 23:30 | NUR ---
RN NOTES NOTED PT HYPERTHERMIC, 100.3, PRN TYLENOL SUPP WILL ADMINISTERED. COOLING MEASURES PROVIDED. WILL CONT TO MONITOR PT
[2018-12-25] MEDS: ACETAMINOPHEN 650 MG/SUPP.RECT RC PRN (23:33)
[2018-12-26] VITALS: BP 149/65
--- NOTE | 2018-12-26 01:00 | NUR ---
RN NOTES RECHECKED TEMPT: 98.8 WILL CONT TO MONITOR PT
[2018-12-26] MEDS: IPRATROPIUM NEB FS 0.5 MG/2.5 ML AMPUL.NEB IH SCH ×2 (01:24→07:34)
[2018-12-26] MEDS: ALBUTEROL FS 2.5 MG/0.5 ML VIAL.NEB IH SCH ×2 (01:25→07:35)
[2018-12-26 04:00] VITALS: BP 166/76
[2018-12-26] MEDS: hydrALAZINE HCL IV 20 MG VIAL IV PRN (04:09)
--- NOTE | 2018-12-26 05:00 | NUR ---
RN NOTES RECHECKED TO=505/68
[2018-12-26] MEDS: VANCOMYCIN 1 GM in IV D5W 250 ML IV SCH (05:43)
[2018-12-26 05:59] LABS: BASOPHILS % (AUTO) 0.5 % (0.0-2.0); EOSINOPHILS % (AUTO) 5.4 % (0.0-6.0); HEMATOCRIT 28 % (33-45); HEMOGLOBIN 8.8 g/dL (11.5-14.8); LYMPHOCYTES # (AUTO) 1.2 /CMM (0.8-4.8); LYMPHOCYTES % (AUTO) 13.5 % (20.0-44.0); MEAN CORPUSCULAR HGB CONC 32 g/dl (31.0-36.0); MEAN CORPUSCULAR VOLUME 87 fL (82-100); MONOCYTES # (AUTO) 0.7 /CMM (0.1-1.30); MONOCYTES % (AUTO) 7.6 % (2.0-12.0); NEUTROPHILS # (AUTO) 6.5 /CMM (1.8-8.9); PLATELET COUNT (AUTO) 277 /CMM (150-450); RED BLOOD CELL COUNT(AUTO) 3.16 MIL/uL (4.0-5.2); WHITE BLOOD COUNT (AUTO) 8.9 K/uL (4.3-11.0)
[2018-12-26] MEDS: INSULIN REGULAR, HUMAN 100 UNIT/ML 3 ML VIAL SQ PRN ×2 (06:03→11:50)
[2018-12-26] MEDS: BLOOD SUGAR DIAGNOSTIC 1 EACH STRIP IN SCH ×2 (06:04→11:50)
[2018-12-26 06:12] LABS: CALCIUM, SERUM 7.6 mg/dL (8.5-10.1); CARBON DIOXIDE 28 mmol/L (21-32); CHLORIDE 107 mmol/L (98-107); CREATININE 0.5 mg/dL (0.6-1.3); GLUCOSE 181 mg/dL (74-106); MAGNESIUM 1.8 mg/dL (1.8-2.4); PHOSPHORUS 2.5 mg/dL (2.5-4.9); POTASSIUM 3.2 mmol/L (3.5-5.1); SODIUM SERUM 143 mmol/L (136-145); UREA NITROGEN, BLOOD 7 mg/dL (7-18)
--- NOTE | 2018-12-26 06:54 | NUR ---
RN NOTES PT IN STABLE CONDITION. NO ACUTE CHANGES THROUGHOUT SHIFT. ALL NEEDS ANTICIPATED. SAFETY MEASURES, ASPIRATION AND SEIZURE PRECAUTION OBSERVED AT ALL TIMES. ENDORSED TO AM SHIFT RN
--- NOTE | 2018-12-26 07:24 | NUR ---
BODYBUILDER OPENING NOTE RECEIVED PT IN BED, NON-VERBAL. EYES OPEN SPONTANEOUSLY TO VERBAL AND TACTILE STIMULI, ABLE TO TRACK AND NOD HEAD. PT WITH TRACH AND ON MECHANICAL VENTILATOR, TOLERATING CURRENT SETTINGS WITH SPO2 >98%, CONTINUOS [address] PT ON NUDE MODEL AND IS SINUS TACH, HR 101 AT THIS TIME. PT HAS G-TUBE FEEDING RUNNING AT 45ML/HR AND TOLERATING AT THIS TIME. RIGHT UPPER ARM MIDLINE IS INFUSING D5NS @ 75ML/HR WITHOUT REDNESS OR SWELLING. ALL CLINICAL ALARMS CHECKED, AMBU BAG AND ADDITIONAL TRACH AT THE BEDSIDE. ASPIRATION PRECAUTIONS MAINTAINED. BED IS LOCKED AND IN LOWEST POSITION, SIDE RAILS UP X2, BED ALARM ON, CALL LIGHT AND POSSESSIONS WITHIN REACH.
[2018-12-26 08:00] VITALS: BP 167/74
[2018-12-26 08:30] VITALS: BP 148/73
[2018-12-26] MEDS: MEROPENEM 1 G in IV NS 0.9% 100 ML IV SCH (08:36)
[2018-12-26] MEDS: CHLORHEXIDINE GLUCONATE 15 ML UDC MM SCH (08:36)
[2018-12-26] MEDS: NEXIUM 40 MG VIAL IV SCH (08:37)
[2018-12-26] MEDS: SUCRALFATE 1 G/10 ML UDC GT SCH ×2 (08:37→11:50)
[2018-12-26] MEDS: VITAMINS A AND D 56.7 GM TUBE TP SCH (08:37)
[2018-12-26] MEDS: LEVETIRACETAM (500MG) 250 MG in IV NS 0.9% 100 ML IV SCH (09:19)
--- NOTE | 2018-12-26 09:20 | NUR ---
WOUND CARE CONSULT: PT HAVING PROCEDURE AT THIS TIME. WILL SEE PT PT CONDITION PERMITS FOR SKIN ASSESSMENT. CURRENT MARCELLA SCORE IS 11. RECOMMEND LOW AIRLOSS MATTRESS. PT IS IMMOBILE, INCONTINENT AND VENT-DEPENDENT. DISCUSSED SKIN PROTECTION WITH NURSING STAFF. MD IN AGREEMENT WITH PLAN OF CARE.
--- NOTE | 2018-12-26 10:00 | NUR ---
MARBLEIZER NOTE ROUNDED WITH DR. EPSTEIN, INFORMED OF ELEVATED TEMPERATURE OVERNIGHT AND NORMAL TEMPERATURE WITH THIS AM CHRISTINE SIGN CHECK. PER DR. EPSTEIN OKAY TO D/C PT TODAY AFTER GI CLEARS.
--- NOTE | 2018-12-26 10:30 | NUR ---
WHOLESALE BUYER NOTE PER DR. EPSTEIN PT HAS BEEN CLEARED BY GI
[2018-12-26] MEDS: POTASSIUM CHLORIDE 20 MEQ POWDER PACKET GT SCH ×2 (10:45→11:50)
[2018-12-26 12:00] VITALS: BP 97/59
[2018-12-26] MEDS ORDERED: ALBUTEROL FS 2.5 MG/3 ML VIAL.NEB NEB SCH (12:30)
[2018-12-26] MEDS ORDERED: IPRATROPIUM NEB FS 0.5 MG/2.5 ML AMPUL.NEB NEB SCH (12:30)
[2018-12-26] MEDS ORDERED: ALBUTEROL FS 2.5 MG/0.5 ML VIAL.NEB NEB SCH (12:30)
--- NOTE | 2018-12-26 12:48 | NUR ---
KETTLE COORDINATOR NOTE PER CHARGE NURSE KWAN, PT WILL BE PICKED UP AT 3:00 P.M TODAY AND BROTHER IS AWARE AND AGREEABLE TO PLAN OF CARE AND DISCHARGE.
[2018-12-26 13:00] VITALS: BP 146/87
[2018-12-26] MEDS: ACETAMINOPHEN 650 MG/SUPP.RECT RC PRN (14:44)
--- NOTE | 2018-12-26 14:44 | NUR ---
SALESPERSON YARD GOODS NOTE INFORMED DR. EPSTEIN OF PT TEMPERATURE 100.[address] EPSTEIN CONTINUE WITH DISCHARGE AND GIVE TYLENOL SUPPOSITORY 650MG.
--- NOTE | 2018-12-26 15:42 | NUR ---
SUPERVISOR RESPIRATORYRELATIONS LIAISON NOTE PT DISCHARGED TO [facility] IN MEDIALLY STABLE CONDITION. PT IS NON-VERBAL WITH TRACH, EYES OPEN SPONTANEOUSLY TO VERBAL AND TACTILE STIMULI, ABLE TO NOD HEAD TO YES AND NO QUESTIONS AT TIMES. NO ACUTE DISTRESS NOTED. BROTHER CHRISTO AWARE AND AGREEABLE TO DISCHARGE. PT TOLERATED G-TUBE FEEDING FOR THE DURATION OF THE SHIFT WITH LESS THAN 5ML RESIDUALS AND NO ABD DISTENSION, VOMITING, OR DIARRHEA. DISCHARGE PAPERWORK AND EDUCATION PROVIDED PER PROTOCOL. REPORT GIVEN TO JOANN AT FACILITY. DISCUSSED DR RECOMMENDATIONS AND ABX ORDERS TO BE CONTINUED AT SNF. WOUND DOCUMENTATION COMPLETED PER PROTOCOL. RIGHT UPPER ARM MIDLINE IS PATENT, CLEAN, DRY AND INTACT. ADLS PROVIDED PRIOR TO TRANSFER AND PT TURNED AND REPOSITIONED Q2H FOR THE DURATION OF THE SHIFT. REPORT GIVEN TO AMBULANCE STAFF FOR TRANSFER OF CARE.
== END 2018-12-26 15:45 | DRG 208 ==
LOC: ER 11:17 → TELE1 14:32
PROVIDERS: ADMIT Hospitalist; ATTEND Internal Medicine
PROC: 5A1945Z Respiratory Ventilation, 24-96 Consecutive Hours (ICD-10-PCS; principal; 2018-12-23)
PROC: 0W993ZZ Drainage of Right Pleural Cavity, Percutaneous Approach (ICD-10-PCS; 2018-12-26)
PROC: 05H533Z Insertion of Infusion Device into Right Subclavian Vein, Percutaneous Approach (ICD-10-PCS; 2018-12-26)
PROC: B546ZZA Ultrasonography of Right Subclavian Vein, Guidance (ICD-10-PCS; 2018-12-26)
DX: J18.9 Pneumonia, unspecified organism (principal); R53.2 Functional quadriplegia; K92.2 Gastrointestinal hemorrhage, unspecified; E87.1 Hypo-osmolality and hyponatremia; J96.10 Chronic respiratory failure, unspecified whether with hypoxia or hypercapnia; Z99.11 Dependence on respirator [ventilator] status; E44.0 Moderate protein-calorie malnutrition; J90 Pleural effusion, not elsewhere classified; D68.59 Other primary thrombophilia; I50.32 Chronic diastolic (congestive) heart failure; D62 Acute posthemorrhagic anemia; E78.5 Hyperlipidemia, unspecified; Z93.1 Gastrostomy status; Z93.0 Tracheostomy status; R13.10 Dysphagia, unspecified; F03.90 Unspecified dementia, unspecified severity, without behavioral disturbance, psychotic disturbance, mood disturbance, and anxiety; G40.909 Epilepsy, unspecified, not intractable, without status epilepticus; K21.9 Gastro-esophageal reflux disease without esophagitis; E11.9 Type 2 diabetes mellitus without complications; Z86.14 Personal history of Methicillin resistant Staphylococcus aureus infection; Z79.899 Other long term (current) drug therapy; Z79.4 Long term (current) use of insulin; E86.0 Dehydration; J44.9 Chronic obstructive pulmonary disease, unspecified; I11.0 Hypertensive heart disease with heart failure; F41.9 Anxiety disorder, unspecified; F32.9 Major depressive disorder, single episode, unspecified; Y95 Nosocomial condition
CPT/HCPCS: 31720; 36415; 71045-TC; 76942-TC; 80048-TC; 80053-TC; 80061-TC; 80076-TC; 80202-TC; 81000-TC; 82962-TC; 83540-TC; 83605-TC; 83690-TC; 83735-TC; 84100-TC; 84443-TC; 84484-TC; 85025-TC; 85610-TC; 85730-TC; 86850-TC; 87040-TC; 87070-TC; 87086-TC; 88112-TC; 88305-TC; 88312-TC; 89051-TC; 94002-TC; 94003-TC; 94760-TC; 94762-TC; 94799-TC; C9113; G0378; J0360; J1815; J1953; J2185; J3370; J7030; J7042; J7050; J7060